=== PATIENT | male | born 1975 | race Caucasian/White ===

== ENCOUNTER 2021-02-06 09:57 | Emergency (ER) | payer OTHER, MEDICAID ==
[~2021-02-06] VITALS: Ht 167.6 cm; Wt 74.8 kg
[2021-02-06 10:05] VITALS: BP 130/97
--- NOTE | 2021-02-06 10:12 | NUR ---
PT W/C ASSISTED TO ER BED 1
--- NOTE | 2021-02-06 10:27 | NUR ---
45/M BIB GIRLFRIEND WITH C/O LEFT FOOT PAIN S/P FALL X4 DAYS. STATES HIS SUGAR DROPPED "TOO LOW" AND HE LOST BALANCE AND TWISTED HIS LEG AND FOOT. STATES FOOT HAS BEEN SWOLLEN AND BRUISED, AMBULATES WITH USE OF PERSONAL WALKER. IN ED, VSS. AOX4. WITH BRUSING ON LEFT FOOT AND TOES. ALSO WITH 1CM ABRASION ON LEFT LOWER LEG. PT POSITIONED IN BED COMFORTABLY. ERMD MADE AWARE OF PT STATUS. MEDHX: DM, HTN, DVT, OCULAR CEREBRAL MUCOR MYCOSIS ALLERGIES: PENICILLINS
[2021-02-06] MEDS ORDERED: MORPHINE SULFATE 4 MG/ML SYR IM ONE (11:40)
[2021-02-06] MEDS ORDERED: ONDANSETRON 4 MG ODT PO ONE (11:40)
[2021-02-06] MEDS ORDERED: ACET-8386 PO (13:19)
--- NOTE | 2021-02-06 13:36 | NUR ---
PT PLACED IN 5" ORHTOGLASS FABRICARTED LEFT LONG LEG POSTERIOR SPLINT AND WRAPPED WITH 4" CATHERINE WRAPS X5. CMS WNL BEFORE AND AFTER AND ERMD NOTIFIED AND APPROVED OF SPLINT.
[2021-02-06 13:37] VITALS: BP 130/97
--- NOTE | 2021-02-06 13:38 | NUR ---
Patient discharged with v/s stable. Written and verbal after care instructions given and explained. Patient alert, oriented and verbalized understanding of instructions. Ambulatory with assist . All questions addressed prior to discharge. ID band removed. Patient advised to follow up with PMD. Rx of NORCO given. Patient educated on indication of medication including possible reaction and side effects. Opportunity to ask questions provided and answered.
== END 2021-02-06 13:37 | disposition home or self-care (01) ==
LOC: MED 09:57
DX: S82.432A Displaced oblique fracture of shaft of left fibula, initial encounter for closed fracture (principal); S93.402A Sprain of unspecified ligament of left ankle, initial encounter; S93.602A Unspecified sprain of left foot, initial encounter; S83.92XA Sprain of unspecified site of left knee, initial encounter; E11.9 Type 2 diabetes mellitus without complications; I10 Essential (primary) hypertension; Z86.718 Personal history of other venous thrombosis and embolism; Z79.899 Other long term (current) drug therapy; Z98.890 Other specified postprocedural states; X50.1XXA Overexertion from prolonged static or awkward postures, initial encounter; Y93.89 Activity, other specified; Y92.89 Other specified places as the place of occurrence of the external cause; Y99.8 Other external cause status
CPT/HCPCS: 29505; 73562; 73590; 73610; 73630; 96372; 99284; J2270; Q0092; Q0162; 81025

== ENCOUNTER 2023-09-16 20:50 | Inpatient (IN) | payer OTHER ==
[~2023-09-16] VITALS: Ht 167.6 cm; Wt 83.9 kg
[2023-09-16 20:50] VITALS: BP 128/79; PULSE 82; RESP 16; TEMP 97.8; O2SAT 98
[~2023-09-16 20:50] MED LIST: ACET-8905 PO
[2023-09-16 21:49] VITALS: O2SAT 98
[2023-09-16 22:38] LABS: BASOPHILS % (AUTO) 0.4 % (0.0-2.0); EOSINOPHILS # (AUTO) 0.1 K/uL (0-0.4); EOSINOPHILS % (AUTO) 1.6 % (0.0-4.0); HEMATOCRIT 39.5 % (36-52); HEMOGLOBIN 13.4 g/dL (12.0-18.0); LYMPHOCYTES # (AUTO) 0.5 K/uL (2.0-11.5); LYMPHOCYTES % (AUTO) 9.2 % (20.5-51.1); MEAN CORPUSCULAR HEMOGLOBIN 30 pg (27-31); MEAN CORPUSCULAR HGB CONC 34 g/dL (33-37); MEAN CORPUSCULAR VOLUME 86.9 fL (80-94); MONOCYTES # (AUTO) 0.3 K/uL (0.8-1.0); MONOCYTES % (AUTO) 5.8 % (1.7-9.3); NEUTROPHILS # (AUTO) 4.4 K/uL (1.8-7.7); PLATELET COUNT (AUTO) 95 K/uL (140-450); RED BLOOD CELL COUNT(AUTO) 4.54 MIL/uL (4.20-6.10); RED CELL DISTRIBUTION WIDTH 14.2 % (11.6-13.7); WHITE BLOOD COUNT (AUTO) 5.3 K/uL (4.8-10.8)
[2023-09-16 22:48] LABS: ANION GAP 12.8 (8-16); CALCIUM 8.3 mg/dL (8.5-10.1); CREATININE 1.8 mg/dL (0.6-1.3); POTASSIUM 3.8 mmol/L (3.5-5.1)
[2023-09-16 22:55] LABS: TOTAL BILIRUBIN 0.5 mg/dL (0.0-1.0)
[2023-09-16 22:56] LABS: ALBUMIN 3.5 g/dL (3.4-5.0); BILIRUBIN,DIRECT 0.1 mg/dL (0.0-0.3); TOTAL PROTEIN, SERUM 7.1 g/dL (6.4-8.2)
[2023-09-16 23:03] LABS: MAGNESIUM 2.4 mg/dL (1.8-2.4)
[2023-09-16] MEDS: NACL 0.9% 500 ML IV ONE (23:57)
[2023-09-17] MEDS ORDERED: HYDROcodone/APAP 5/325 MG 1 TAB TAB PO PRN (01:50)
[2023-09-17] MEDS ORDERED: ACETAMINOPHEN 325 MG TAB PO PRN (01:50)
[2023-09-17] MEDS ORDERED: MORPHINE SULFATE 4 MG/ML SYR IVP PRN (01:50)
[2023-09-17] MEDS ORDERED: DEXTROSE 50% 50 ML SYR IVP PRN (01:55)
[2023-09-17] MEDS: BLOOD GLUCOSE MONITORING 1 DEV DEV FS SCH ×2 (02:14→07:50)
[2023-09-17] MEDS: INSULIN LANTUS 100 UNITS/ML 10 ML VIAL SUBQ SCH (02:17)
[2023-09-17] MEDS: INSULIN LISPRO SLIDING SCALE 100 UNITS/ML VIAL SUBQ PRN (03:33)
[2023-09-17] MEDS: NACL 0.9% 1,000 ML IV SCH (04:07)
[2023-09-17 06:07] VITALS: O2SAT 97
[2023-09-17 08:45] VITALS: BP 136/77; PULSE 85; RESP 20; TEMP 98.8; O2SAT 100
[2023-09-17] MEDS ORDERED: ENOXAPARIN 40 MG/0.4 ML SYR SUBQ SCH (09:00)
[2023-09-17 10:00] VITALS: RESP 16; O2SAT 97
[2023-09-17 16:00] VITALS: BP 130/71; PULSE 75; RESP 20; TEMP 98.1; O2SAT 100
[2023-09-17 16:32] LABS: INR 1.04 (0.8-1.2); PROTHROMBIN TIME 10.9 secs (10.8-13.4)
[2023-09-17 16:47] LABS: BASOPHILS % (AUTO) 0.4 % (0.0-2.0); EOSINOPHILS # (AUTO) 0.1 K/uL (0-0.4); EOSINOPHILS % (AUTO) 1.8 % (0.0-4.0); HEMATOCRIT 38.3 % (36-52); LYMPHOCYTES # (AUTO) 0.4 K/uL (2.0-11.5); LYMPHOCYTES % (AUTO) 11.7 % (20.5-51.1); MEAN CORPUSCULAR HEMOGLOBIN 29 pg (27-31); MEAN CORPUSCULAR HGB CONC 34 g/dL (33-37); MEAN CORPUSCULAR VOLUME 86.9 fL (80-94); MONOCYTES # (AUTO) 0.2 K/uL (0.8-1.0); NEUTROPHILS # (AUTO) 2.7 K/uL (1.8-7.7); NEUTROPHILS % (AUTO) 79.1 % (42.2-75.2); PLATELET COUNT (AUTO) 135 K/uL (140-450); RED CELL DISTRIBUTION WIDTH 13.9 % (11.6-13.7); WHITE BLOOD COUNT (AUTO) 3.4 K/uL (4.8-10.8)
[2023-09-17] MEDS: PROPRANOLOL 20 MG TAB PO SCH (17:01)
[2023-09-17] MEDS: BACLOFEN 10 MG TAB PO SCH (17:01)
[2023-09-17] MEDS: WARFARIN PO SCH (18:29)
[2023-09-17] MEDS: WARFARIN 2.5 MG TAB ONE (18:46)
[2023-09-17] MEDS: WARFARIN 5 MG TAB ONE ×2 (18:56→18:57)
[2023-09-17 20:00] VITALS: BP 102/53; PULSE 83; RESP 18; RESP 19; TEMP 98; O2SAT 100; O2SAT 96
[2023-09-17] MEDS: GABAPENTIN 100 MG CAP PO SCH (21:05)
[2023-09-18 04:00] VITALS: BP 130/73; PULSE 75; RESP 19; TEMP 97.3; O2SAT 97
[2023-09-18 06:01] LABS: EOSINOPHILS # (AUTO) 0.1 K/uL (0-0.4); EOSINOPHILS % (AUTO) 1.5 % (0.0-4.0); HEMOGLOBIN 13.1 g/dL (12.0-18.0); LYMPHOCYTES # (AUTO) 0.4 K/uL (2.0-11.5); LYMPHOCYTES % (AUTO) 11.9 % (20.5-51.1); MEAN CORPUSCULAR HEMOGLOBIN 29 pg (27-31); MEAN CORPUSCULAR HGB CONC 34 g/dL (33-37); MEAN CORPUSCULAR VOLUME 86.7 fL (80-94); MONOCYTES # (AUTO) 0.3 K/uL (0.8-1.0); MONOCYTES % (AUTO) 9.3 % (1.7-9.3); NEUTROPHILS # (AUTO) 2.7 K/uL (1.8-7.7); NEUTROPHILS % (AUTO) 77.3 % (42.2-75.2); PLATELET COUNT (AUTO) 164 K/uL (140-450); RED BLOOD CELL COUNT(AUTO) 4.51 MIL/uL (4.20-6.10); RED CELL DISTRIBUTION WIDTH 13.9 % (11.6-13.7); WHITE BLOOD COUNT (AUTO) 3.5 K/uL (4.8-10.8)
[2023-09-18 06:13] LABS: INR 1.09 (0.8-1.2); PROTHROMBIN TIME 11.4 secs (10.8-13.4)
[2023-09-18 06:26] LABS: ANION GAP 12.5 (8-16); CALCIUM 8.1 mg/dL (8.5-10.1); CARBON DIOXIDE 25.2 mmol/L (21-32); CREATININE 1.3 mg/dL (0.6-1.3); MAGNESIUM 2.3 mg/dL (1.8-2.4); PHOSPHORUS 3.1 mg/dL (2.5-4.9); POTASSIUM 3.7 mmol/L (3.5-5.1); TOTAL BILIRUBIN 0.6 mg/dL (0.0-1.0); TOTAL PROTEIN, SERUM 6.5 g/dL (6.4-8.2)
[2023-09-18 08:00] VITALS: RESP 18; O2SAT 96
[2023-09-18] MEDS ORDERED: WARFARIN 2.5 MG TAB PO SCH (09:00)
[2023-09-18 16:00] VITALS: BP 135/80; PULSE 70; RESP 18; TEMP 97.6; O2SAT 98
[2023-09-18] MEDS: WARFARIN 2.5 MG TAB PO SCH (16:31)
[2023-09-19 06:24] LABS: INR 2.6 (0.8-1.2)
[2023-09-19 08:00] VITALS: BP 127/70; PULSE 75; RESP 18; TEMP 97.7; O2SAT 96; O2SAT 98
[2023-09-19] MEDS ORDERED: BACTO TP (13:08)
[2023-09-19] MEDS ORDERED: PROP20TA29 PO (13:08)
[2023-09-19 13:13] VITALS: BP 122/69; PULSE 61; RESP 16; TEMP 97.8
== END 2023-09-19 16:10 | disposition home or self-care (01) | DRG 469 ==
LOC: MED 20:50 → MMU 09-17 01:51 → MTU 09-17 01:51 → MMU 09-17 06:53 → MTU 09-19 11:34
PROVIDERS: ADMIT Student in an Organized Health Care Education/Training Program; ATTEND Student in an Organized Health Care Education/Training Program
DX: N17.9 Acute kidney failure, unspecified (principal); E11.21 Type 2 diabetes mellitus with diabetic nephropathy; E11.65 Type 2 diabetes mellitus with hyperglycemia; R53.1 Weakness; R25.1 Tremor, unspecified; E78.5 Hyperlipidemia, unspecified; E11.22 Type 2 diabetes mellitus with diabetic chronic kidney disease; I12.9 Hypertensive chronic kidney disease with stage 1 through stage 4 chronic kidney disease, or unspecified chronic kidney disease; N18.30 Chronic kidney disease, stage 3 unspecified; V89.2XXA Person injured in unspecified motor-vehicle accident, traffic, initial encounter; Y93.89 Activity, other specified; Y92.89 Other specified places as the place of occurrence of the external cause; Y99.8 Other external cause status; Z79.899 Other long term (current) drug therapy
CPT/HCPCS: 36415; 70450; 71045; 72125; 80048; 80053; 80076; 82948; 83735; 83880; 84100; 84484; 85025; 85610; 87081; 93005; 96360; 97116; 97163-GP; 99285; J1815